=== PATIENT | female | born 1995 | race Caucasian/White ===

== ENCOUNTER 2017-09-28 20:46 | Emergency (ER) | payer OTHER ==
[~2017-09-28] VITALS: Ht 152.4 cm; Wt 52.7 kg
[~2017-09-28 20:46] MED LIST: ACET325 PO; AMOX500T PO; PROM6.257 PO
[2017-09-28 21:03] VITALS: BP 113/64; PULSE 82; RESP 18; TEMP 98.6; O2SAT 98
--- NOTE | 2017-09-28 21:39 | PD ---
HPI Chief Complaint: Skin Problem Time Seen by Provider: 21:22 Travel History International Travel<30 days: No Contact w/Intl Traveler<30days: No Traveled to known affect area: No History of Present Illness HPI 21yo F with no PMH presents to the ED with c/o abscess in her arm today. Said there was some bug bites in her right arm and she went to [facility] and was given bactrim which she started 2 days ago. She removed a scab and showed me a video was her expressing pus from there. Said it was much better after she got the pus out. Denies any fever, chest pain, sob, n/v, abdominal pain, focal weakness or numbness. No worsening erythema or swelling. Swelling improved after she drained the abscess. Denies any trauma. PFSH Past Medical History Diminished Hearing: No Immunizations Current: Yes (utd for age) ?: Unknown LMP: 08/28/17 Social History Alcohol Use: No Tobacco Use: No Substance Use: No Allergies-Medications (Allergen,Severity, Reaction): Coded Allergies: No Known Allergies (Verified Adverse Reaction, Unknown, 09/28/17) Reported Meds & Prescriptions Reported Meds & Active Scripts Active Amoxil (Amoxicillin) 500 Mg Cap 500 Mg PO BID 10 Days Phenergan/Codeine 6.25/10 Mg/5 Ml (Promethazine HCl/Codeine) Soln 5 Ml PO Q6HPRN FOR COUGH Reported Tylenol (Acetaminophen) 325 Mg Tab 325 Mg PO Q6-8HPRN Review of Systems Except as stated in HPI: all other systems reviewed are Neg Physical Exam Narrative GENERAL: 21yo F not in distress. SKIN: Focused skin assessment warm/dry. HEAD: Atraumatic. Normocephalic. EYES: Pupils equal and round. No scleral icterus. No injection or drainage. ENT: No nasal bleeding or discharge. Mucous membranes pink and moist. NECK: Trachea midline. No JVD. CARDIOVASCULAR: Regular rate and rhythm. No murmur appreciated. RESPIRATORY: No accessory muscle use. Clear to auscultation. Breath sounds equal bilaterally. GASTROINTESTINAL: Abdomen soft, non-tender, nondistended. MUSCULOSKELETAL: Right humerus. There are 3 big bites and one of them has underlying induration. There is a very small amount of fluctuance right in the middle of the now closed opening. Distal pulses intact. Sensation intact. NEUROLOGICAL: Awake and alert. No obvious cranial nerve deficits. Motor grossly within normal limits. Normal speech. PSYCHIATRIC: Appropriate mood and affect; insight and judgment normal. Data Data Last Documented VS Vital Signs Date Time Temp Pulse Resp B/P (MAP) Pulse Ox O2 Delivery O2 Flow Rate FiO2 09/28/17 21:03 98.6 82 18 113/64 (80) 98 MDM Medical Decision Making Medical Screen Exam Complete: Yes Emergency Medical Condition: Yes Differential Diagnosis Abscess vs. cellulitis Narrative Course 21yo F with right arm cellulitis that she drained herself today. Pt has very small amount of fluctuance right in the middle but is refusing I&D to see if more purulent discharge can be drained. She said she will drain it herself. She is well appearing and already on antibiotics. Since she has only been on bactrim for 2 days, instructed her to continue to take it and return to the ED if the abscess reformed and she wants I&D. Informed her to return if she has fever, worsening redness or any other concerning symptoms. Diagnosis Primary Impression: Arm abscess Patient Instructions: General Instructions Departure Forms: Tests/Procedures Additional Instructions: Please return to the ED if your abscess reforms and you want us to do incision and drainage. Please continue to take your antibiotics. Please take acetaminophen or ibuprofen for pain. Med/Other Pt SpecificInfo: No Change to Meds Disposition: 01 DISCHARGE HOME Condition: Stable Diane Bender Sep 28, 2017 21:38
[2017-09-28] MEDS ORDERED: IBUP1TAB7 PO (21:56)
[2017-09-28] MEDS ORDERED: BACT800T5 PO (21:56)
== END 2017-09-28 22:05 | disposition home or self-care (01) ==
LOC: PHED 20:46
DX: L02.413 Cutaneous abscess of right upper limb (principal)
CPT/HCPCS: 99282